=== PATIENT | male | born 1960 | race Two or more races ===

== ENCOUNTER 2022-03-12 10:52 | Inpatient (IN) | payer MEDICARE, MEDICAID ==
[~2022-03-12] VITALS: Ht 165.1 cm; Wt 103.5 kg
[2022-03-12] MEDS ORDERED: ONDANSETRON HCL 4 MG/2 ML VIAL IV ONE ×3 (11:00→16:00)
[2022-03-12] MEDS ORDERED: HYDROmorphone HCL 2 MG/ML VL/or syr IV ONE ×3 (11:00→21:00)
[2022-03-12 12:26] LABS: Basophils # (auto) 0 10 ^3/uL (0-0.2); Basophils % (auto) 0.5 % (0.0-2.0); Eosinophils # (auto) 0.2 10 ^3/uL (0-0.8); Eosinophils % (auto) 2.6 % (0.0-7.0); Hematocrit 41.5 % (41.0-53.0); Hemoglobin 13.7 g/dL (13.5-17.5); Lymphocytes # (auto) 0.9 10 ^3/uL (0.4-5.4); Lymphocytes % (auto) 11.9 % (10.0-50.0); Mean Corpuscular Hemoglobin 29.7 pg (28.0-32.0); Mean Corpuscular Hgb Conc. 32.9 g/dL (32.0-36.0); Mean Corpuscular Volume 90.2 fL (80.0-100.0); Monocytes # (auto) 0.4 10 ^3/uL (0-1.3); Monocytes % (auto) 5.5 % (0.0-12.0); Neutrophils # (auto) 6.2 10 ^3/uL (1.6-8.6); Neutrophils % (auto) 79.5 % (37.0-80.0); Red Cell Distribution Width 13.6 % (11.8-14.3); White Blood Cell 7.8 10^3/uL (4.4-10.8)
[2022-03-12 12:40] LABS: Partial Thromboplastin Time 30.5 sec (24.6-33.4)
[2022-03-12 12:43] LABS: Albumin 3.4 g/dL (3.4-5.0); Calcium 8.7 mg/dL (8.5-10.1)
[2022-03-12 12:47] LABS: BUN/Creatinine Ratio 9.8; Bilirubin, Total 0.6 mg/dL (0.2-1.0); Total Protein 6.7 g/dL (6.4-8.2)
[2022-03-12] MEDS ORDERED: PREG150C PO (15:17)
[2022-03-12] MEDS ORDERED: TRAZ50TA2 PO (15:17)
[2022-03-12] MEDS ORDERED: DULO60CA PO (15:17)
[2022-03-12] MEDS ORDERED: TIZA4CAP PO (15:17)
[2022-03-12] MEDS ORDERED: MORPHINE SULFATE INJ 2 MG/ml SYRG IV PRN ×2 (16:00→19:15)
[2022-03-12] MEDS ORDERED: MORPHINE SULFATE 4 MG/ML SYR/VIAL IV ONE (16:00)
[2022-03-12] MEDS ORDERED: HYDROmorphone HCL 2 MG/ML VL/or syr IV PRN (19:00)
[2022-03-12 19:51] LABS: Cholesterol 151 mg/dL (< 200)
[2022-03-12 19:54] LABS: HDL Cholesterol 41 mg/dL (40-59); LDL Cholesterol 118 mg/dL (< 100); Triglycerides 64 mg/dL (< 150)
[2022-03-12] MEDS ORDERED: DICL50TA4 PO (20:43)
[2022-03-12] MEDS ORDERED: HYDROcodone-ACET 5/325MG TAB PO PRN (21:00)
[2022-03-12 22:00] VITALS: BP 158/74
[2022-03-12 22:44] LABS: Urine Bacteria MANY /hpf (None Seen); Urine Blood Negative /uL (Negative); Urine Specific Gravity 1.003 (1.001-1.035); Urine WBC 10 /hpf (0 - 3)
[2022-03-13] MEDS: HYDROmorphone HCL 2 MG/ML VL/or syr IV PRN ×5 (01:49→20:31)
[2022-03-13 05:57] LABS: Basophils # (auto) 0 10 ^3/uL (0-0.2); Basophils % (auto) 0.4 % (0.0-2.0); Eosinophils # (auto) 0.4 10 ^3/uL (0-0.8); Eosinophils % (auto) 4.3 % (0.0-7.0); Hematocrit 45.2 % (41.0-53.0); Hemoglobin 14.9 g/dL (13.5-17.5); Lymphocytes # (auto) 1.1 10 ^3/uL (0.4-5.4); Lymphocytes % (auto) 12.3 % (10.0-50.0); Mean Corpuscular Hemoglobin 29.9 pg (28.0-32.0); Mean Corpuscular Hgb Conc. 32.9 g/dL (32.0-36.0); Mean Corpuscular Volume 90.8 fL (80.0-100.0); Monocytes # (auto) 0.6 10 ^3/uL (0-1.3); Monocytes % (auto) 7.2 % (0.0-12.0); Neutrophils # (auto) 6.8 10 ^3/uL (1.6-8.6); Neutrophils % (auto) 75.8 % (37.0-80.0); Red Blood Cells 4.99 10^6/uL (4.5-5.90); Red Cell Distribution Width 13.5 % (11.8-14.3)
[2022-03-13 06:21] LABS: Albumin 3.3 g/dL (3.4-5.0); Calcium 8.9 mg/dL (8.5-10.1); Potassium 3.6 mmol/L (3.5-5.1)
[2022-03-13 06:24] LABS: BUN/Creatinine Ratio 9.3; Bilirubin, Total 0.7 mg/dL (0.2-1.0); Total Protein 6.6 g/dL (6.4-8.2)
[2022-03-13] MEDS ORDERED: ceFAZolin 1GM/50ML 0 ML IV ONE (07:06)
[2022-03-13] MEDS ORDERED: SUCCINYLCHOLINE CHLORIDE 20 MG/ML 10ML VIAL IV ONE (07:26)
[2022-03-13] MEDS ORDERED: MIDAZOLAM HCL 2MG/2ML 2ml VIAL (1mg/ml) ONE (07:28)
[2022-03-13] MEDS ORDERED: PROPOFOL 10 MG/ML 20 ML IV ONE ×2 (07:28→07:55)
[2022-03-13] MEDS ORDERED: fentaNYL CITRATE 100 MCG/2 ML VL ONE (07:54)
[2022-03-13] MEDS ORDERED: ONDANSETRON HCL 4 MG/2 ML VIAL ONE (07:55)
[2022-03-13] MEDS ORDERED: METOCLOPRAMIDE HCL 5MG/ml INJ 2ml VIAL IV PRN (08:15)
[2022-03-13] MEDS ORDERED: HYDROmorphone HCL 2 MG/ML VL/or syr IV PRN (08:15)
[2022-03-13] MEDS ORDERED: DOCUSATE SOD 100 MG CAP PO PRN (10:00)
[2022-03-13] MEDS: FLUTICASONE PROP NASAL SPR 0.05 % (50MCG) 16GM EACHNOSTRI SCH (10:00)
[2022-03-13] MEDS: DULoxetine HCL 30 MG CAP PO SCH ×2 (11:08→21:47)
[2022-03-13] MEDS: ALUM & MAG HYDROX-SIMETH LIQ(MAALOX) 30 ML GT PRN ×2 (11:09→20:34)
[2022-03-13 13:00] VITALS: BP 175/76
[2022-03-13] MEDS: TIZANIDINE 4 MG PO SCH ×2 (14:00→21:48)
[2022-03-13] MEDS: PREGABALIN CAPSULE 75 MG CAP PO SCH ×2 (14:40→21:47)
[2022-03-13 17:00] VITALS: BP 146/76
[2022-03-13] MEDS ORDERED: traZODone HCL 50 MG TAB PO SCH (22:00)
[2022-03-14] MEDS: HYDROmorphone HCL 2 MG/ML VL/or syr IV PRN ×4 (00:39→14:35)
[2022-03-14 03:02] VITALS: BP 170/83
[2022-03-14 04:47] VITALS: BP 146/73
[2022-03-14] MEDS: TIZANIDINE 4 MG PO SCH ×3 (05:47→14:34)
[2022-03-14] MEDS: PREGABALIN CAPSULE 75 MG CAP PO SCH ×2 (05:47→14:34)
[2022-03-14] MEDS: ALUM & MAG HYDROX-SIMETH LIQ(MAALOX) 30 ML GT PRN (06:56)
[2022-03-14 09:00] VITALS: BP 118/82
[2022-03-14] MEDS: FLUTICASONE PROP NASAL SPR 0.05 % (50MCG) 16GM EACHNOSTRI SCH (10:00)
[2022-03-14] MEDS ORDERED: ENOXAPARIN SOD 40 MG/0.4 ML SYRINGE SC SCH (10:00)
[2022-03-14] MEDS: DULoxetine HCL 30 MG CAP PO SCH (10:06)
[2022-03-14 15:05] VITALS: BP 148/72
== END 2022-03-14 15:57 | disposition home or self-care (01) | DRG 561 ==
LOC: ER 10:52 → EDBD 10:52 → OVERFLOW 15:58 → EAST 18:48
PROVIDERS: ADMIT Registered Nurse; ATTEND Internal Medicine
PROC: BQ101ZZ Fluoroscopy of Right Hip using Low Osmolar Contrast (ICD-10-PCS; 2022-03-13)
PROC: 0QS4XZZ Reposition Right Acetabulum, External Approach (ICD-10-PCS; principal; 2022-03-13 07:29)
DX: T84.020A Dislocation of internal right hip prosthesis, initial encounter (principal); E11.9 Type 2 diabetes mellitus without complications; F17.210 Nicotine dependence, cigarettes, uncomplicated; G89.29 Other chronic pain; W01.0XXA Fall on same level from slipping, tripping and stumbling without subsequent striking against object, initial encounter; Z96.641 Presence of right artificial hip joint; Y79.2 Prosthetic and other implants, materials and accessory orthopedic devices associated with adverse incidents; Z20.822 Contact with and (suspected) exposure to COVID-19; S40.011A Contusion of right shoulder, initial encounter; Y93.89 Activity, other specified; Y92.096 Garden or yard of other non-institutional residence as the place of occurrence of the external cause; Y99.8 Other external cause status; Z83.3 Family history of diabetes mellitus; Z91.81 History of falling; Z88.8 Allergy status to other drugs, medicaments and biological substances
CPT/HCPCS: 36415; 71045; 73030; 73502; 73700; 76000; 80053; 80061; 81001; 82962; 83036; 85025; 85610; 85730; 86850; 86900; 86901; 93005; 96374; 96375; 97163; G0378; J0330; J0690; J2250; J2405; J2704